=== PATIENT | female | born 1960 | race Caucasian/White ===

== ENCOUNTER 2018-05-12 07:33 | Day surgery (SDC) | payer OTHER ==
[~2018-05-12] VITALS: Ht 162.6 cm; Wt 61.2 kg
[~2018-05-12 07:33] MED LIST: IBUP-1544 PO
[2018-05-12 08:55] VITALS: Ht 162.6 cm; Wt 61.2 kg
[2018-05-12] MEDS ORDERED: MIRALAX PO (09:14)
[2018-05-12] MEDS ORDERED: ATORVASTATIN PO (09:14)
[2018-05-12] MEDS ORDERED: LEVOTHYROXINE PO (09:14)
[2018-05-12] MEDS ORDERED: STOOL SOFTENER PO (09:14)
[2018-05-12 09:15] VITALS: BP 119/73; PULSE 99; RESP 30
[2018-05-12] MEDS ORDERED: MIDAZOLAM 1 MG/ML 2 ML INJ ONE ×3 (10:07)
[2018-05-12] MEDS ORDERED: FENTAnyl 50 MCG/ML VIAL ONE (10:08)
[2018-05-12 10:26] VITALS: BP 110/76; RESP 27
== END 2018-05-12 16:45 | disposition home or self-care (01) ==
LOC: GIL 07:33
PROVIDERS: ATTEND Internal Medicine Gastroenterology
DX: R19.4 Change in bowel habit (principal); K64.8 Other hemorrhoids; K29.60 Other gastritis without bleeding
CPT/HCPCS: 43239; 45378; 88305; 88312; J2250; J3010; Z7610